=== PATIENT | male | born 1955 | race Caucasian/White ===

== ENCOUNTER 2017-06-12 11:38 | Emergency (ER) | payer BC ==
[2017-06-12 11:53] VITALS: RESP 18; TEMP 97.9
[2017-06-12] MEDS ORDERED: KETOROLAC 30 MG/ML 1 ML VIAL IVP STA (12:19)
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
[2017-06-12 12:36] LABS: Aty Lym Flag Moderate; CH 31.4; HCT 42.8 % (39.0-53.0); HDW 2.79; HGB 14.8 gm/dL (13.0-17.5); MCH 32.2 pg (25.0-35.0); MCHC 34.6 g/dL (31.0-37.0); Mean Platelet Volume 7.6; RDW 13.2 % (11.5-15.5); WBC 8.8 k/uL (3.8-10.6); WBC (Perox) 8.29
--- NOTE | 2017-06-12 12:45 | XR ---
EXAMINATION TYPE: XR chest 2V DATE OF EXAM: 06/12/2017 HISTORY: cough. REFERENCE: NONE. FINDINGS: There has been a previous ACDF of the lower cervical spine. The lungs are clear. Pleural spaces are clear. The heart is upper limits of normal in size. IMPRESSION: BORDERLINE CARDIOMEGALY.
--- NOTE | 2017-06-12 12:46 | XR ---
EXAMINATION TYPE: XR ankle complete RT , 3 VIEWS DATE OF EXAM ORDERED: 06/12/2017 HISTORY: Pain and swelling. COMPARISON: None. FINDINGS: No fracture, dislocation or ankle joint effusion is seen. There is an accessory ossicle ju st distal to the distal fibula. IMPRESSION: NO ACUTE OSSEOUS LESION.
[2017-06-12 12:47] LABS: ALT 30 U/L (21-72); AST 17 U/L (17-59); Alkaline Phosphatase 61 U/L (38-126); Anion Gap 13 mmol/L; Blood Urea Nitrogen 12 mg/dL (9-20); Calcium 9.8 mg/dL (8.4-10.2); Carbon Dioxide 20 mmol/L (22-30); Chloride 108 mmol/L (98-107); Glucose 132 mg/dL (74-99); Non-African American GFR(MDRD) >60 (>60 ml/min/1.73 sqM); Potassium 4.4 mmol/L (3.5-5.1); Sodium 141 mmol/L (137-145); Total Bilirubin 0.9 mg/dL (0.2-1.3); Total Protein 7.2 g/dL (6.3-8.2); Uric Acid 6.3 mg/dL (3.5-8.5)
[2017-06-12 12:56] LABS: Add Differential Manual Differential
[2017-06-12 12:58] LABS: Band Neutrophils % 1 %; Nucleated Red Blood Cells 0 /100 WBC (0-0); Total Cells Counted 100
[2017-06-12 12:59] LABS: Manual Review Performed
[2017-06-12 13:12] LABS: C Reactive Protein 169.7 mg/L (<10.0)
[2017-06-12 13:25] LABS: Erythrocyte Sedimentation Rate 47 mm/hr (0-15)
--- NOTE | 2017-06-12 13:32 | US ---
EXAMINATION TYPE: US venous doppler duplex LE RT DATE OF EXAM: 06/12/2017 12:59 PM COMPARISON: US 2013 CLINICAL HISTORY: Pain and swelling. History of previous DVT in right leg SIDE PERFORMED: Right TECHNIQUE: The lower extremity deep venous system is examined utilizing real time linear array sonog emmanuelle with graded compression, doppler sonography and color-flow sonography. VESSELS IMAGED: External Iliac Vein (EIV) Common Femoral Vein Deep Femoral Vein Greater Saphenous Vein * Femoral Vein Popliteal Vein Small Saphenous Vein * Proximal Calf Veins (* superficial vessels) Right Leg: Negative for DVT No popliteal fossa lesion is seen. IMPRESSION: THIS EXAMINATION IS NEGATIVE FOR DVT WITHIN THE RIGHT LEG.
[2017-06-12 14:06] VITALS: BP 118/72; PULSE 74
== END 2017-06-12 14:05 | disposition home or self-care (01) ==
LOC: EC 11:38
DX: M13.171 Monoarthritis, not elsewhere classified, right ankle and foot (principal); F32.9 Major depressive disorder, single episode, unspecified; Z86.718 Personal history of other venous thrombosis and embolism; Z88.5 Allergy status to narcotic agent; Z79.52 Long term (current) use of systemic steroids; Z79.82 Long term (current) use of aspirin; Z79.899 Other long term (current) drug therapy
CPT/HCPCS: 99284 ×2; 96374 ×2; 36415; 80053; 85652; 84550; 85025; 86140; 87040; 71020; 73610; 93971; J1885

== ENCOUNTER → 2017-06-22 | Outpatient (CLI) | payer BC ==
--- NOTE | 2017-06-22 08:30 | CT ---
EXAMINATION TYPE: CT cervical spine wo con DATE OF EXAM: 06/22/2017 COMPARISON: NONE HISTORY: Spondylosis CT DLP: 938.6 mGycm Automated exposure control for dose reduction was used. TECHNIQUE: CT scan of the cervical spine is obtained without contrast, axial images are obtained, sa gittal and coronal reformatted images are also reviewed. FINDINGS: Exam limited by metallic artifact from the patient's surgical hardware. There appears to be anterior fixation and postsurgical changes extending from C4 through T1 which appears in near-anatomic alignme nt. Facet arthropathy at all levels. Assessment spinal canal limited due to artifact and noncontrast technique. The surgical sites there i s complete obscuration the spinal canal due to artifact hardware artifact. Exam is therefore markedly limited. At C3-C4 there is severe left-sided uncovertebral joint hypertrophy and posterior spondylosis. There is severe left-sided foraminal encroachment and moderate right foraminal encroachment. Anterior compr ession of the thecal sac and suspected canal stenosis. Mass effect on the spinal cord not excluded. At C2-C3 the central disc bulging and facet arthropathy with uncovertebral joint hypertrophy and mild bilateral foraminal encroachment. Postsurgical levels extending from C4 through T1 are nondiagnostic due to metallic artifact suspect u ncovertebral joint hypertrophy and foraminal encroachment at all these levels. IMPRESSION: 1. Exam markedly limited due to severe metallic artifact obscuring the spinal canal at levels C4-T1 w ere the postsurgical change is noted. At these levels however uncovertebral joint hypertrophy and for aminal encroachment is suspected bilaterally. 2. Posterior hypertrophic spondylosis with disc bulging C3-C4 and marked uncovertebral joint hypertro phy greater on the left results in severe bilateral foraminal encroachment and canal stenosis. Mass e ffect upon the spinal cord not excluded. Correlate clinically.
== END | disposition home or self-care (01) ==
LOC: RADXRMAIN 07:46
PROVIDERS: ATTEND Neurological Surgery
DX: M48.02 Spinal stenosis, cervical region (principal); M53.82 Other specified dorsopathies, cervical region; M47.12 Other spondylosis with myelopathy, cervical region; M50.21 Other cervical disc displacement, high cervical region; Z98.890 Other specified postprocedural states
CPT/HCPCS: 72125

== ENCOUNTER → 2017-11-02 | Day surgery (SDC) | payer BC ==
[2017-10-28 15:30] VITALS: BMI 35.2
[~2017-11-02] MED LIST: LIDOCAINE 1% 20 ML VIAL (10MG/ML) FOR IV START INTRADERMA ONE; PROPOFOL 10 MG/ML 20 ML VIAL IV ONE
[2017-11-02 10:37] VITALS: RESP 16; TEMP 97.6
[2017-11-02] MEDS: LACTATED RINGERS 1,000 ML IV SCH ×2 (10:38→12:28)
--- NOTE | 2017-11-02 13:06 | P.PCN ---
Date of Procedure: 11/02/17 Procedure(s) Performed: Procedure: Total colonoscopy. Preoperative diagnosis: Screening for neoplasia. Postoperative diagnosis: Mild sigmoid diverticulosis with no evidence of acute diverticulitis, strictures, polyps or cancer. Preparation: HalfLytely prep. Sedation: Was provided by anesthesia. Brief clinical history: The patient is a 62-year-old male who is scheduled for this evaluation for screening for neoplasia. He had a prior exam more than 10 years ago. The patient has no abdominal complaints, bleeding or anemia. Procedure: With the patient on his left lateral decubitus position and after informed consent and adequate sedation, the perianal area was inspected and it did not show any fissures or fistulas. There were no masses felt on digital rectal examination. The Olympus CFQ 160L video colonoscope was then inserted in the rectum in the usual fashion and advanced to the cecum. There was some hyperpigmentation and mosaic patterns of the mucosa consistent with mild melanosis coli. Few small diverticular orifices were seen scattered in the sigmoid with no evidence of acute diverticulitis or strictures. No significant polyps or tumors were seen or any other obvious pathology. I retroflexed the endoscope in the rectum before the endoscope was withdrawn. The patient tolerated the procedure well. Plan: The patient was reassured. Discussed dietary measures. He will follow up with you as planned and I recommended repeat exam in 10 years.
[2017-11-02 13:14] VITALS: BP 128/87; PULSE 63
== END ==
LOC: ORWHC2ENDO 09:57
DX: Z12.11 Encounter for screening for malignant neoplasm of colon (principal); K57.30 Diverticulosis of large intestine without perforation or abscess without bleeding; L81.8 Other specified disorders of pigmentation; G47.33 Obstructive sleep apnea (adult) (pediatric); E78.5 Hyperlipidemia, unspecified; R53.1 Weakness; E66.9 Obesity, unspecified; Z68.35 Body mass index [BMI] 35.0-35.9, adult; Z86.718 Personal history of other venous thrombosis and embolism; Z87.828 Personal history of other (healed) physical injury and trauma; Z87.440 Personal history of urinary (tract) infections; Z79.82 Long term (current) use of aspirin; Z79.899 Other long term (current) drug therapy; Z88.5 Allergy status to narcotic agent
CPT/HCPCS: J2704; G0121